=== PATIENT | female | born 1980 ===

== ENCOUNTER 2019-02-01 11:32 | Inpatient (IN) | payer OTHER ==
[~2019-02-01] VITALS: Ht 165.1 cm; Wt 68.0 kg
[2019-02-05] MEDS ORDERED: ALDOMET250 MG/5 M PO (08:31)
[2019-02-11] MEDS ORDERED: SPRINTEC 28 DA1 EACH PO (08:11)
[2019-02-14] MEDS ORDERED: Tylenol#3 PO (11:41)
== END 2019-02-14 12:48 | disposition home or self-care (01) | DRG 743 ==
LOC: O/R 02-05 08:15 → SURG 02-05 08:15 → OB/GYN 02-11 07:35 → O/R 02-11 07:35 → RECOVERY 02-11 08:15 → OB/GYN 02-11 16:46
PROVIDERS: ADMIT Obstetrics & Gynecology
PROC: 0TJB8ZZ Inspection of Bladder, Via Natural or Artificial Opening Endoscopic (ICD-10-PCS; 2019-02-11)
PROC: 0UT90ZZ Resection of Uterus, Open Approach (ICD-10-PCS; principal; 2019-02-11 10:30)
DX: D25.1 Intramural leiomyoma of uterus (principal); N94.4 Primary dysmenorrhea; N72 Inflammatory disease of cervix uteri; N73.6 Female pelvic peritoneal adhesions (postinfective); I10 Essential (primary) hypertension; N81.11 Cystocele, midline

== ENCOUNTER 2019-02-16 20:28 | Emergency (ER) | payer OTHER ==
[~2019-02-16] VITALS: Ht 165.1 cm; Wt 68.0 kg
[~2019-02-16 20:28] MED LIST: ALDOMET250 MG/5 M PO; SPRINTEC 28 DA1 EACH PO; Tylenol#3 PO
== END 2019-02-16 22:09 | disposition home or self-care (01) ==
LOC: ER 20:28
DX: R50.82 Postprocedural fever (principal)